=== PATIENT | male | born 1990 | race Hispanic/Latino ===

== ENCOUNTER 2022-08-20 12:31 | Emergency (ER) | payer OTHER ==
[~2022-08-20] VITALS: Ht 180.3 cm; Wt 73.9 kg
--- OUTSIDE RECORDS SUMMARY | 2022-08-20 12:34 | XMS ---
PreManage Notification: BREANNA BEDOYA Security Occupational Health Nurse Events No recent Security Events currently on file CRITERIA MET - [facility] - 2 Visits in 30 Days CARE PROVIDERS There are no care providers on record at this time. Bubba has no Care Guidelines for this patient. Ez VISIT COUNT (12 MO.) [address] TOTAL 3 NOTE: Visits indicate total known visits. ED/C VISIT TRACKING (12 MO.) 08/20/2022 12:32 [facility] [place] TYPE: Emergency COMPLAINT: - CHEST CONGESTION, BODY ACHES, FEVER 08/17/2022 12:42 [facility] [place] TYPE: Emergency DIAGNOSES: - Influenza due to unidentified influenza virus with other respiratory manifestations - SORE THROAT CONGESTION BODY ACHES 02/16/2022 19:31 [facility] [place] TYPE: Emergency DIAGNOSES: - COGH,CHEST PAIN - Bronchitis, not specified as acute or chronic INPATIENT VISIT TRACKING (12 MO.) No inpatient visits to display in this time frame [email or web address]
[2022-08-20] MEDS ORDERED: IBUPROFEN600 MG PO (17:02)
[2022-08-20] MEDS ORDERED: MAPAP500 MG PO (17:03)
[2022-08-20] MEDS ORDERED: BENZONATATE100 MG PO (20:29)
[2022-08-20] MEDS ORDERED: CYCLOBENZAPRINE10 MG PO (20:29)
[2022-08-20] MEDS ORDERED: ONDANSETRON ODT8 MG PO (20:29)
== END 2022-08-20 21:12 | disposition home or self-care (01) ==
LOC: ED 12:31
DX: J10.1 Influenza due to other identified influenza virus with other respiratory manifestations (principal); F17.200 Nicotine dependence, unspecified, uncomplicated
CPT/HCPCS: 36415; 80053; 85025; 96374; 96375; 99283-25; J1885; J2405; J7121